=== PATIENT | female | born 1950 | race Caucasian/White ===

== ENCOUNTER → 2020-09-06 11:53 | Outpatient (BNVA) | payer MEDICARE, SELFPAY | PROVIDERS: PCP Internal Medicine; Visit Provider Surgery | DX: K59.00 Constipation, unspecified (principal); R10.32 Left lower quadrant pain | CPT/HCPCS: 99202 ==

== ENCOUNTER 2020-09-16 06:24 | Day surgery (SDC) | payer MEDICARE, SELFPAY ==
[2020-09-13 08:43] VITALS: BMI 32.3
--- NOTE | 2020-09-15 08:37 | P.CONAN_ITS ---
Documented by User: Katia Vigil 09/15/20 08:42 HPI - Anesthesia Eval Consult details Narrative: 70yo F for Colonoscopy [facility] Active Problems Active Problems: All Active Problems (Updated 09/07/20 @ 14:55 by Abdiel Perez MD) Constipation (Acute) Abdominal pain, left lower quadrant (Acute) Past Medical History Medical History Arm fracture Diabetes mellitus HLD (hyperlipidemia) Hypothyroid Surgical History Surgical History History of section Social History Social History Smoking Status: Former smoker Smoked in Last 30 Days: No Use of substances other than those prescribed or required for medical reasons: No Advance Directives: No Advance Directives Information Provided: Yes Recently lost weight without trying: Yes Meds Allergies Allergy/AdvReac Type Severity Reaction Status Date / Time No Known Allergies Allergy Verified 09/16/20 06:35 Home Medications Medication Instructions Recorded Confirmed Last Taken Type alendronate 70 mg tablet 70 mg PO QWEEK 09/06/20 Unknown History atenolol 50 mg tablet 50 mg PO DAILY 09/06/20 Unknown History atorvastatin 40 mg tablet 40 mg PO DAILY 09/06/20 Unknown History esomeprazole magnesium 20 mg 20 mg PO DAILY 09/06/20 Unknown History capsule,delayed release insulin detemir U-100 100 unit/mL 14 unit SUBCUT BEDTIME ml 09/06/20 Unknown History subcutaneous solution levothyroxine 112 mcg tablet 112 mcg PO DAILY 09/06/20 Unknown History pioglitazone 45 mg tablet 45 mg PO DAILY 09/06/20 Unknown History Exam Exam Date and Time: September 15, 2020 0837 Height,Weight and Vital Signs: Height 5 ft 6 in Weight 90.718 kg Assessment and Plan Assessment Anesthesia Assessment: Chart Reviewed Documented by User: Gonzalo Baires 09/16/20 07:14 PMFSH Past Medical History Medical History Arm fracture Diabetes mellitus HLD (hyperlipidemia) Hypothyroid Surgical History Surgical History History of section Social History Social History Smoking Status: Former smoker Smoked in Last 30 Days: No Use of substances other than those prescribed or required for medical reasons: No Advance Directives: No Advance Directives Information Provided: Yes Recently lost weight without trying: Yes Meds Allergies Allergy/AdvReac Type Severity Reaction Status Date / Time No Known Allergies Allergy Verified 09/16/20 06:35 Home Medications Medication Instructions Recorded Confirmed Last Taken Type alendronate 70 mg tablet 70 mg PO QWEEK 09/06/20 Unknown History atenolol 50 mg tablet 50 mg PO DAILY 09/06/20 Unknown History atorvastatin 40 mg tablet 40 mg PO DAILY 09/06/20 Unknown History esomeprazole magnesium 20 mg 20 mg PO DAILY 09/06/20 Unknown History capsule,delayed release insulin detemir U-100 100 unit/mL 14 unit SUBCUT BEDTIME ml 09/06/20 Unknown History subcutaneous solution levothyroxine 112 mcg tablet 112 mcg PO DAILY 09/06/20 Unknown History pioglitazone 45 mg tablet 45 mg PO DAILY 09/06/20 Unknown History Exam Airway Mallampati Class: II TM Dist: >3cm Neck ROM: Full Denture: Upper Partial: Lower Loose/Missing/Broken Teeth: Yes Heart: [id number] Lungs: cta b/l Assessment and Plan Assessment Anesthesia Assessment: Anesthesia Plan Discussed, PAT Visit and Chart Reviewed Final Anesthetic Review NPO: Yes ASA Class: II Final Preanesthetic Review: No Changes in Pt Med Stat, Meds/Allgs Chart Reviewed, Consent Obtained/Reviewed and Anes Risks/Benef Reviewed Patient Risk: Low Procedure Risk: Low Assessment/Block/Sedation in SS: Assess/Block/Sedation-SS Anesthetic Plan Anesthetic Plan: MAC: and Agree w/ Assess. and Plan Disposition: Standard PACU
[2020-09-16 06:31] VITALS: BMI 30.7
[2020-09-16 06:38] VITALS: BP 148/73; PULSE 89; RESP 16; TEMP 36.1; O2SAT 95
--- NOTE | 2020-09-16 06:51 | PC.NURSE ---
patient atytempting to use bathroom prior to a fleet
[2020-09-16] MEDS: Sodium Phosphate,Mono-Dibasic 133 ML ENEMA PR (06:54)
--- NOTE | 2020-09-16 06:58 | PC.NURSE ---
no output are attempting in the bathroom. agreed to having fleet enema. laying on left side lexis well.
--- NOTE | 2020-09-16 07:08 | PC.NURSE ---
ooutput clear and yellow.
[2020-09-16] MEDS: Lactated Ringers 1,000 ML 100 ML IVCONT (07:09)
[2020-09-16 07:14] LABS: Glucose, Whole Blood 141 mg/dL (60-115)
--- NOTE | 2020-09-16 07:26 | P.HPSUR_ITS ---
Pre-Procedural Eval Section B Chief Complaint: Family Hx of Colon Cancer, Change in Bowel Habit Allergies: Allergies Allergy/AdvReac Type Severity Reaction Status Date / Time No Known Allergies Allergy Verified 09/16/20 06:35 Plan 71F with a family hx of colon caner (sister) here for ffup colonoscopy last colomoscopy was 5 years ago - benign polyps removed, in [place] has constipation no blood per rectum abd soft reviewed procedure with pt, incl. risks, benefits and alternatives I have reviewed the history and physical and performed a pertinent physical examination on my patient. No changes have occurred unless specified.
--- NOTE | 2020-09-16 08:24 | P.OP_ITS ---
Operative Note Operative Note Date of Service: 09/16/20 Narrative: Preop diagnosis: FH of colon cancer, constipation Postop diagnosis: As above, incomplete colonoscopy due to severe angulation in the sigmoid Procedure: incomplete colonoscopy, on the 25 cm Surgeon: Shiv Corey MD The patient is a 70 year female who was seen by Dr. Perez because of constipation with recent onset. She was also due for her screening colonoscopy as she has a family history of colon cancer. She was therefore sent to [facility] for colonoscopy. She understood the technique of the procedure. She was ordered the risks, benefits alternatives. She stated that her last colonoscopy was 5 years ago in [place] and this had shown some benign polyps. She was brought to the operating room placed in left lateral decubitus position under monitored anesthesia care. A surgical time-out was done. A full digital rectal was done and there were no palpable anal lesions. The tip of the Olympus colonoscope was gently introduced through the anal orifice and advanced with insufflation slowly. We were able to advance up to about 20-25 cm but there was note of a severe angulation and advance the scope through this. Furthermore, I continued to insufflate and we were unable to clearly identify the lumen at this point because of this apparent angulation. I attempted multiple times by withdrawing and reinserting the scope but I encountered the same angulation in the same area. There was no mucosal abnormality that was seen. After multiple attempts for about 20 minutes, I deemed that it would be unsafe to persist with advancing the scope. I withdrew the scope and examined the distal sigmoid rectum and there were no lesions seen. The scope was then withdrawn completely The patient otherwise tolerated the procedure well. There were no immediate complications I will schedule the patient for CT colonography. This will be explained to her.
[2020-09-16 08:28] VITALS: BP 140/58; PULSE 77; RESP 16; TEMP 36.2; O2SAT 97
--- NOTE | 2020-09-16 08:29 | PM.OP ---
Brief Operative Note Date of Service: 09/16/20 Pre-op diagnosis: Family history of colon cancer Post-op diagnosis: same (Unable to advance the scope past 20-25 cm because of severe angulation) Procedure: Incomplete colonoscopy up to 20-25 cm only Surgeon: Shiv Corey MD Anesthesia: GLMA Estimated blood loss (mL): 0 Pathology: none sent Condition: stable Disposition: PACU
[2020-09-16 08:43] VITALS: BP 144/58; PULSE 71; RESP 16; TEMP 36.2; O2SAT 97
== END 2020-09-16 09:41 | disposition home or self-care (01) ==
PROVIDERS: PCP Internal Medicine; Visit Provider Surgery
PROC: 0DJD8ZZ Inspection of Lower Intestinal Tract, Via Natural or Artificial Opening Endoscopic (ICD-10-PCS; CPT 45378; principal; 2020-09-16 07:30)
DX: R19.4 Change in bowel habit (principal); K56.699 Other intestinal obstruction unspecified as to partial versus complete obstruction; Z80.0 Family history of malignant neoplasm of digestive organs; Z86.010 Personal history of colon polyps; K59.00 Constipation, unspecified; E11.9 Type 2 diabetes mellitus without complications; Z79.4 Long term (current) use of insulin; Z87.891 Personal history of nicotine dependence
CPT/HCPCS: 45330; 82947

== ENCOUNTER → 2020-09-29 08:49 | Outpatient (BNVA) | payer MEDICARE, SELFPAY | PROVIDERS: PCP Internal Medicine; Visit Provider Surgery | DX: K59.00 Constipation, unspecified (principal) | CPT/HCPCS: Q3014 ==

== ENCOUNTER 2023-04-01 06:54 | Day surgery (SDC) | payer MEDICARE, SELFPAY ==
[2023-03-27 16:36] VITALS: BMI 38.7
[2023-03-28 10:30] VITALS: BMI 37.1
--- NOTE | 2023-03-29 07:52 | MHC.SHP ---
Pre-Procedural Eval Section A Date of Service: 03/29/23 The patient is an INPATIENT: No Changes since office visit: No Cold of Flu in the past 2 weeks, No New Medical Problems, No Changes in Medication and No Patient answered all questions The History & Physical has been completed within 30 days and I have reviewed it.: Yes Section B Chief Complaint: Age-related nuclear cataract, right eye Allergies: Allergies Allergy/AdvReac Type Severity Reaction Status Date / Time No Known Allergies Allergy Verified 03/28/23 10:30 Plan Diagnosis/Plan: Unchanged I have reviewed the history and physical and performed a pertinent physical examination on my patient. No changes have occurred unless specified. Time Spent With Patient Time: Total time managing care of this patient today ____ minutes.
[2023-04-01] MEDS: Cyclopentolate 1 % Ophth Sol 2 ML DRPBTL 1 DROP EYE-RIGHT ×3 (07:36→07:45)
[2023-04-01] MEDS: Tetracaine HCl/PF 0.5% Oph Sol 4 ML DROPS 1 DROP EYE-RIGHT (07:36)
[2023-04-01] MEDS: Lactated Ringers 500 ML 50 ML IV (07:36)
[2023-04-01] MEDS: Tropicamide 1 % Ophth Sol 3 ML BTL 1 DROP EYE-RIGHT ×3 (07:37→07:46)
[2023-04-01] MEDS: Phenylephrine HCL 2.5% Oph SoL 2 ML BOTTLE 1 DROP EYE-RIGHT ×3 (07:37→07:46)
[2023-04-01] MEDS: Ketorolac Tromethamine 0.5% Op 5 ML DROPS 1 DROP EYE-RIGHT ×3 (07:37→07:46)
[2023-04-01 07:48] VITALS: BP 132/57; PULSE 68; RESP 18; TEMP 36.6; O2SAT 96
--- NOTE | 2023-04-01 07:55 | P.CONAN_ITS ---
HPI - Anesthesia Eval Consult details Narrative: 72 yo female patient for Right cataract ectraction, IOL insertion PMFSH Active Problems Active Problems: All Active Problems (Updated 04/01/23 @ 07:50 by Tri Lindsey MD) Screening for colon cancer (Acute) Constipation (Acute) Abdominal pain, left lower quadrant (Acute) Increased BMI Past Medical History Medical History Osteoporosis Cataract HLD (hyperlipidemia) Hypothyroid Arm fracture Diabetes mellitus Family History Family history of problems with anesthesia: No Surgical History Surgical History H/O colonoscopy History of section History of Problems with Anesthesia: No Social History Social History Household Members: Spouse Housing: House Are you a primary home health care case manager to a significant other at home: Yes ( with hip fx) Do you presently have visiting nurse or other home services: No Patient Tobacco Use Status: Former Tobacco user Quit Date: 2016 Tobacco use type: Cigarette Use of substances other than those prescribed or required for medical reasons: No Have you been hit, kicked, punched, or otherwise hurt by someone within the past year? If so, by whom?: No Are you DNR?: No Advance Directives: No Advance Directives Information Provided: Yes Advance Directives on File: No Recently lost weight without trying: No Nutrition Risks: No Nutritional Risk Meds Allergies Allergy/AdvReac Type Severity Reaction Status Date / Time No Known Allergies Allergy Verified 04/01/23 07:07 Active Medications: Current Medications Lactated Ringer's (Lr) 500 mls @ 50 mls/hr IV .Q10H CALDERON Stop: 04/01/23 16:59 Last Admin: 04/01/23 07:36 Dose: 50 mls/hr Lactated Ringer's (Lr) 500 mls @ 50 mls/hr IVCONT .Q10H CALDERON Povidone Iodine (Povidone Iodine 5 % Ophth Soln 30 Ml Bottle) 1 appl EYE-RIGHT PREOP PRN PRN Reason: Pre-Op Surgical Implant Prophy Home Medications Medication Instructions Recorded Confirmed Last Taken Type alendronate 70 mg tablet 70 mg PO QWEEK 09/06/20 03/28/23 Unknown History atenolol 50 mg tablet 50 mg PO DAILY 09/06/20 03/28/23 Unknown History atorvastatin 40 mg tablet 40 mg PO BEDTIME 09/06/20 03/28/23 Unknown History insulin detemir U-100 100 unit/mL 14 unit subcut DAILY 09/06/20 03/28/23 Unknown History subcutaneous solution (Levemir U-100 Insulin) levothyroxine 112 mcg tablet 112 mcg PO DAILY 09/06/20 03/28/23 Unknown History pioglitazone 45 mg tablet 45 mg PO DAILY 09/06/20 03/28/23 Unknown History Exam Exam Date and Time: April 01, 2023 0755 Height,Weight and Vital Signs: Height 5 ft 4.57 in Weight 99.79 kg Last Vital Signs Temp 97.9 F 04/01/23 07:48 Pulse 68 04/01/23 07:48 Resp 18 04/01/23 07:48 BP 132/57 L 04/01/23 07:48 Pulse Ox 96 04/01/23 07:48 O2 Del Method Room Air 04/01/23 07:48 Pertinent Lab Results Pertinent Lab Results: Lab Results 04/01/23 Range/Units 08:04 POC Glucose 106 (60-115) mg/dL Airway Mallampati Class: II TM Dist: >3cm Neck ROM: Full Denture: Upper Partial: Lower Loose/Missing/Broken Teeth: Yes (Denies broken or loose teeth) Heart: RRR Lungs: CTAB Assessment and Plan Assessment Anesthesia Assessment: Anesthesia Plan Discussed and Chart Reviewed Final Anesthetic Review Family History of Problems with Anesthesia: No History of Problems with Anesthesia: No NPO: Yes ASA Class: II Final Preanesthetic Review: No Changes in Pt Med Stat, Meds/Allgs Chart Reviewed, Consent Obtained/Reviewed and Anes Risks/Benef Reviewed Patient Risk: Intermediate Procedure Risk: Low Assessment/Block/Sedation in SS: Assess/Block/Sedation-SS Anesthetic Plan Anesthetic Plan: MAC: Disposition: Standard PACU
[2023-04-01 08:07] LABS: Glucose, Whole Blood 106 mg/dL (60-115)
--- NOTE | 2023-04-01 08:43 | HO.PNOPHT ---
Ophthalmology Procedure Procedure Date of Service: 04/01/23 Ophthalmology Viscoelastic: Healon Duet Dual Pack Pro Ophthalmology Lenses: TECNIS [id number] (20.5) Procedure Notes: PREOPERATIVE DIAGNOSIS: Decreased visual acuity right eye secondary to cataract POSTOPERATIVE DIAGNOSIS: Same PROCEDURE: Right cataract extraction with intraocular lens insertion SURGEON: Gurpreet Nelson M.D. ANESTHESIA: Topical/MAC ESTIMATED BLOOD LOSS: None COMPLICATIONS: None After obtaining informed consent, the patient was brought to the operating room suite and placed in the supine position. After adequate sedation per anesthesia, topical drops of Tetracaine were given to the right eye. The eye was then prepped and draped in the usual sterile fashion. The operating room microscope was then positioned over the operative eye and a lid speculum placed. A paracentesis was created. Viscoelastic was then instilled into the anterior chamber. A three plane incision was then created temporally, utilizing a 2.85 mm keratome. Capsulotomy forceps were then utilized to create a circular tear capsulotomy. Hydrodissection and hydrodelineation were carried out until adequate mobilization of the nucleus occurred. Phacoemulsification was then utilized to remove the dense central nucleus followed by removal of the cortical material utilizing the automated aspiration irrigation unit. Viscoelastic was instilled into the posterior capsular bag followed by placement of a posterior chamber intraocular lens without difficulty. The residual Viscoelastic was then removed utilizing the automated IA machine. The wound was checked and found to be watertight. The patient tolerated the procedure well and the lid speculum was removed. Intracameral injection of Vigamox 0.1 mL followed by a subtenon injection of Kenalog-40 0.2 mL were administered. The patient will be seen in the a.m.
[2023-04-01 09:07] VITALS: BP 173/88; PULSE 63; RESP 20; TEMP 36.5; O2SAT 97
== END 2023-04-01 09:18 | disposition home or self-care (01) ==
PROVIDERS: PCP Internal Medicine; Visit Provider Ophthalmology
PROC: (CPT 66985; principal; 2023-04-01 08:50)
DX: H25.11 Age-related nuclear cataract, right eye (principal); H52.4 Presbyopia; Z83.511 Family history of glaucoma; I10 Essential (primary) hypertension; E78.00 Pure hypercholesterolemia, unspecified; E11.9 Type 2 diabetes mellitus without complications; E03.9 Hypothyroidism, unspecified; Z79.899 Other long term (current) drug therapy; Z87.891 Personal history of nicotine dependence
CPT/HCPCS: 66984; 82947; J2250; J3010; J3301; V2632

== ENCOUNTER 2024-04-15 13:39 | Emergency (ER) | payer MEDICARE, SELFPAY ==
--- NOTE | ~2024-04-15 | CT_ITS ---
EXAMINATION: CT HEAD WITHOUT CONTRAST CT FACIAL BONES WITHOUT CONTRAST CT CERVICAL SPINE WITHOUT CONTRAST CLINICAL INFORMATION: Fall. Head trauma. Hit face on concrete. Neck pain. COMPARISON: None available. TECHNIQUE: Imaging was performed from the skull base to vertex without intravenous administration of contrast. In addition, helical noncontrast CT imaging was acquired through the cervical spine and facial bones and source images were reviewed along with axial reconstructions and sagittal and coronal MPRs. This CT examination was performed using dose optimization techniques as appropriate, variously including the following: *Automated exposure control. *Adjustment of mA and/or kV according to patient size (this includes techniques or standardized protocols for targeted exams where dose is matched to indication/reason for exam; i.e. extremities or head). *Use of iterative reconstruction technique. DLP: 1705 mGy-cm FINDINGS: Head: There is no evidence of acute intracranial hemorrhage or edematous territorial infarction. Camacho-white matter differentiation is preserved. A few foci of hypoattenuation in the periventricular and deep white matter are consistent with mild microangiopathy. The ventricles are normal in morphology and size. No evidence for obstructive hydrocephalus. No abnormal mass effect or midline shift. No extra-axial fluid collections. The small subgaleal hematoma along the anterior vertex, measuring up to 0.3 cm in depth. No associated acute osseous calvarial abnormalities. Maxillofacial Bones: No evidence of maxillofacial bone fractures. The zygomatic arches remain intact. No nasal bone fracture. The nasal septum remains midline. No evidence of mandibular or maxillary fracture. The mandibular condyles remain well-seated in their respective temporal articular grooves. Normal appearance of the intraconal and extraconal fat. No evidence of traumatic injury to the extraocular musculature or globes. The mastoid air cells and visualized paranasal sinuses are clear. No layering fluid collections. Cervical Spine: The atlantooccipital and atlantoaxial articulations remain well aligned. Right-sided lens extraction. Moderate degenerative arthropathy of the atlantodental articulation. Mild reversal the normal cervical lordosis. Minimal degenerative anterolisthesis of C3 on C4. Otherwise, there is anatomic alignment of the vertebral bodies and posterior elements. No evidence of acute fracture or subluxation. The vertebral body heights are maintained. Advanced degenerative disc disease from C5-T3. Moderate degenerative disc disease at all additional levels. Facet and uncovertebral joint arthropathy leads to osseous encroachment on the neural foramina from C2-C3. There is no prevertebral soft tissue swelling. Atrophy of the thyroid gland. The thyroid gland and remaining cervical soft tissues are within normal limits. The lung apices demonstrate no abnormalities. CT/CT cervical spine wo IV con IMPRESSION: 1. No evidence of acute intracranial hemorrhage or edematous territorial infarction. Mild underlying microangiopathy. 2. No evidence of acute fracture or traumatic subluxation of the cervical spine. Moderate to advanced multilevel degenerative spondyloarthropathy of the cervical spine. 3. No evidence of acute fracture of the maxillofacial bones. 4. Small anterior scalp hematoma. No associated osseous calvarial abnormalities. Electronically signed by: Rhys Bhatt DO 04/15/2024 04:24 PM [facility]
--- NOTE | ~2024-04-15 | XR_ITS ---
EXAMINATION: XR KNEE, RIGHT CLINICAL INFORMATION: Fall. COMPARISON: None. TECHNIQUE: Four views of the right knee. FINDINGS: There is no acute radiographic finding. No fracture or dislocation is seen. No suprapatellar effusion is noted. Question very mild degenerative joint space narrowing involving the medial and patellofemoral compartments. No lytic or sclerotic bony lesion is seen. The soft tissues appear unremarkable. XR/XR knee RT 3V IMPRESSION: No acute finding. Electronically signed by: Preston Mackey MD 04/15/2024 04:21 PM EST RP
--- NOTE | 2024-04-15 13:53 | ED_ITS ---
HPI - Fall General Chief Complaint: Fall Stated Complaint: fall facial and neck inj Time Seen by Provider: 04/15/24 14:34 Source: patient and family (patient's son) Mode of arrival: ambulatory Limitations: no limitations History of Present Illness ED Provider: Gail Lopez PA-C HPI Narrative: Patient is a 73 year old assigned female at with a history of osteoporosis, cataracts, HLD, hypothyroidism, and DM presenting to the emergency department today with upper lip pain, right knee pain, neck pain, and head pain after a fall. Patient states that she was going up her concrete steps when she slipped and fell forward, jamming her neck and scraping her face. Patient denies any loss of consciousness, dizziness, lightheadedness, abdominal pain, nausea, vomiting, fever, chills, blurry vision, double vision, loss of vision, chest pain, difficulty breathing, shortness of breath, back pain, night sweats, pain with urination, increased urinary frequency, increased urinary urgency, blood in her urine or stool, syncope or a near syncopal episode, bowel incontinence, bladder incontinence, or any other complaints at this time. Patient states that she believes she is up to date on her tetanus status. Place fall occurred: home Loss of consciousness: none Context: tripped/slipped Location of injury: head, face and other (right knee) Related Data Home Medications ?Medication ?Instructions ?Recorded ?Confirmed alendronate 70 mg tablet 70 mg PO QWEEK 09/06/20 03/28/23 atenolol 50 mg tablet 50 mg PO DAILY 09/06/20 03/28/23 atorvastatin 40 mg tablet 40 mg PO BEDTIME 09/06/20 03/28/23 insulin detemir U-100 100 unit/mL 14 unit subcut DAILY 09/06/20 03/28/23 subcutaneous solution (Levemir U-100 Insulin) levothyroxine 112 mcg tablet 112 mcg PO DAILY 09/06/20 03/28/23 pioglitazone 45 mg tablet 45 mg PO DAILY 09/06/20 03/28/23 Previous Rx's ?Medication ?Instructions ?Recorded baclofen 5 mg tablet 5 mg PO TID PRN muscle pain #10 04/15/24 tabs lidocaine 5 % topical patch 1 patch topical DAILY #15 ea 04/15/24 (Lidoderm) naproxen 500 mg tablet 500 mg PO Q12H PRN pain (scale 04/15/24 score 1-3) #20 tabs Allergies Allergy/AdvReac Type Severity Reaction Status Date / Time No Known Allergies Allergy Verified 04/15/24 14:02 Review of Systems 2 Constitutional: Constitutional: Reports no additional constitutional complaints, Denies chills, Denies fever(s), Reports headache(s) and Denies night sweats Eyes: Eyes: Reports no additional eye complaints, Denies blurry vision, Denies change in vision, Denies diplopia, Denies eye discharge, Denies loss of vision and Denies eye pain ENT: Denies dizziness, Reports facial pain, Reports headache(s) and Reports neck pain Cardiovascular: Cardiovascular: Reports no additional cardiovascular complaints, Denies chest pain, Denies lightheadedness, Denies Loss of Consciousness and Denies dyspnea Respiratory: Respiratory: Reports no additional respiratory complaints and Denies dyspnea Gastrointestinal: Gastrointestinal: Reports no additional gastrointestinal complaints, Denies abdominal pain, Denies melena, Denies hematochezia, Denies change in bowel habits and Denies change in stool character Genitourinary: Genitourinary: Denies hematuria, Denies urinary frequency, Denies dysuria, Denies urinary incontinence, Denies urinary hesitancy and Denies urinary urgency Musculoskeletal: Musculoskeletal: Reports no additional musculoskeletal complaints, Reports neck pain, Denies numbness and Denies tingling Comments: right knee pain Neurologic: Denies dizziness, Reports headache(s), Denies loss of vision, Denies numbness and Denies tingling Psychiatric: Psychiatric: Reports no additional psychiatric complaints Endocrine: Endocrine: Reports no additional endocrine complaints Hematologic/Lymphatic: Hematologic/Lymphatic: Reports no additional hematologic/lymphatic complaints Allergic/Immunologic: Allergic/Immunologic: Reports no additional allergic/immunologic complaints [facility] Past Medical History Attestation statement: The following information was validated with the patient. (patient's son validated all information) Source: old records reviewed, obtained from family (patient's son provided additional history and confirmed the history provided by the patient.) and nursing notes reviewed Medical History Osteoporosis Cataract HLD (hyperlipidemia) Hypothyroid Arm fracture Diabetes mellitus Surgical History H/O colonoscopy History of section Social History Social History Household Members: Spouse Housing: House Are you a primary director day care center to a significant other at home: Yes ( with hip fx) Do you presently have visiting nurse or other home services: No Patient Tobacco Use Status: Former Tobacco user Tobacco use type: Cigarette Smoked in Last 30 Days: No Use of substances other than those prescribed or required for medical reasons: No Advance Directives: Yes Advance Directives Information Provided: No Advance Directives on File: No Physical Exam 2 Vital Signs: Vital Signs: Last Vital Signs Pulse 62 04/15/24 14:07 Resp 18 04/15/24 14:07 BP 106/79 04/15/24 14:07 Pulse Ox 97 04/15/24 14:07 O2 Del Method Room Air 04/15/24 13:54 BMI result Body Mass Index 39.5 Const: General: cooperative, no acute distress, alert and awake Nutritional Appearance: well nourished Orientation/consciousness: patient oriented x3 Limitations: no limitations HEENT: Head: Yes normal to inspection Head images: 1. skin abrasion - no active bleeding, no gaping areas Ears: hearing grossly normal bilaterally and external ears normal General nose exam: Normal external nose present, no nasal discharge noted and no epistaxis Face and sinus: Yes normal facial exam, No abrasion and No laceration Mouth: Normal oral and palatal mucosa present, no drooling and no muffled voice Eyes: General: appearance normal, both eyes and all related structures P eriorbital: periorbital findings normal Eyelids: Yes eyelids normal C onjunctivae: conjunctivae normal Pupils: Equal, round and reactive pupils present EOM: EOMs intact bilaterally Neck: Other: patient is in a c-collar Neck: Yes normal visual inspection Chest: Chest palpation & inspection: normal inspection of the chest Resp: Effort & Inspection: normal respiratory effort and able to speak in complete sentences GI: Inspection: Yes normal to inspection Neuro: General: patient oriented x3 and moves all extremities Cranial nerves: Yes Equal, round and reactive pupils present Cognition (Neuro): n ormal cognition Extrem: General: Yes normal to inspection, Yes full ROM and Yes capillary refill normal Psych: Appearance: grossly normal Mental Status: mental status grossly normal Affect: normal affect Attitude: cooperative Thought process: N ormal thought process present Thought content: Normal thought content present Insight: Good insight present (Psych) Course Course Course Narrative: This is a Rapid Medical Exam performed in triage by Gladis Watkins PA-C. Full HPI, ROS and PE to be performed by primary ED provider. 73 yo F presenting to the ED c/o headache, neck pain & R knee pain s/p mechanical slip & fall on concrete steps while going up the stairs [employer] PE: +superficial abrasions to nose, +lip swelling, +midline cervical spinous ttp > C-collar placed. +neck stiffness Plan: Head/C-spine CT, XR Reevaluation(s) Reevaluation #1: 1827 -- I received patient in sign-out from Gail BERNAL at shift change. On my examination, patient in cervical collar, lying comofrtably. She does have a small abrasion to her right knee without overlying swelling, deformity or ecchymosis. No active bleeding. small frontal scalp hematoma, no skull fracture. EOMs intact w/o entrapment. PERRLA. no septal hematoma. small abrasion and swelling to upper lip. no laceration. dentition intact. Head CT without bleed or skull fracture. There is a small anterior scalp hematoma which is consistent with exam findings. No acute fracture or subluxation of the C-spine. There is advanced multilevel degenerative spondyloarthropathy of the C-spine. No acute fracture of the maxillofacial bones. I personally removed cervical collar. She is tender along cervical spine. No noted step-off deformity. Patient requesting to be placed in a collar for comfort > placed in [place] collar. I have ordered her valium, lidocaine patch, and toradol for pain control. given degree of tenderness, I have advised patient to follow up with our spine doctor (dr. zamudio). referral provided. naproxen, lido patches and baclofen sent to pharmacy for pain control. Patient has remained stable throughout ED visit today. Discussed worrisome signs and symptoms and when to return to the ED. All questions answered at this time. Patient is agreeable with disposition and stable for discharge. EXAMINATION: CT HEAD WITHOUT CONTRAST CT FACIAL BONES WITHOUT CONTRAST CT CERVICAL SPINE WITHOUT CONTRAST CLINICAL INFORMATION: Fall. Head trauma. Hit face on concrete. Neck pain. COMPARISON: None available. TECHNIQUE: Imaging was performed from the skull base to vertex without intravenous administration of contrast. In addition, helical noncontrast CT imaging was acquired through the cervical spine and facial bones and source images were reviewed along with axial reconstructions and sagittal and coronal MPRs. This CT examination was performed using dose optimization techniques as appropriate, variously including the following: *Automated exposure control. *Adjustment of mA and/or kV according to patient size (this includes techniques or standardized protocols for targeted exams where dose is matched to indication/reason for exam; i.e. extremities or head). *Use of iterative reconstruction technique. DLP: 1705 mGy-cm FINDINGS: Head: There is no evidence of acute intracranial hemorrhage or edematous territorial infarction. Camacho-white matter differentiation is preserved. A few foci of hypoattenuation in the periventricular and deep white matter are consistent with mild microangiopathy. The ventricles are normal in morphology and size. No evidence for obstructive hydrocephalus. No abnormal mass effect or midline shift. No extra-axial fluid collections. The small subgaleal hematoma along the anterior vertex, measuring up to 0.3 cm in depth. No associated acute osseous calvarial abnormalities. Maxillofacial Bones: No evidence of maxillofacial bone fractures. The zygomatic arches remain intact. No nasal bone fracture. The nasal septum remains midline. No evidence of mandibular or maxillary fracture. The mandibular condyles remain well-seated in their respective temporal articular grooves. Normal appearance of the intraconal and extraconal fat. No evidence of traumatic injury to the extraocular musculature or globes. The mastoid air cells and visualized paranasal sinuses are clear. No layering fluid collections. Cervical Spine: The atlantooccipital and atlantoaxial articulations remain well aligned. Right-sided lens extraction. Moderate degenerative arthropathy of the atlantodental articulation. Mild reversal the normal cervical lordosis. Minimal degenerative anterolisthesis of C3 on C4. Otherwise, there is anatomic alignment of the vertebral bodies and posterior elements. No evidence of acute fracture or subluxation. The vertebral body heights are maintained. Advanced degenerative disc disease from C5-T3. Moderate degenerative disc disease at all additional levels. Facet and uncovertebral joint arthropathy leads to osseous encroachment on the neural foramina from C2-C3. There is no prevertebral soft tissue swelling. Atrophy of the thyroid gland. The thyroid gland and remaining cervical soft tissues are within normal limits. The lung apices demonstrate no abnormalities. CT/CT head/brain wo IV con IMPRESSION: 1. No evidence of acute intracranial hemorrhage or edematous territorial infarction. Mild underlying microangiopathy. 2. No evidence of acute fracture or traumatic subluxation of the cervical spine. Moderate to advanced multilevel degenerative spondyloarthropathy of the cervical spine. 3. No evidence of acute fracture of the maxillofacial bones. 4. Small anterior scalp hematoma. No associated osseous calvarial abnormalities. Electronically signed by: Rhys Bhatt DO 04/15/2024 04:24 PM [facility] EXAMINATION: XR KNEE, RIGHT CLINICAL INFORMATION: Fall. COMPARISON: None. TECHNIQUE: Four views of the right knee. FINDINGS: There is no acute radiographic finding. No fracture or dislocation is seen. No suprapatellar effusion is noted. Question very mild degenerative joint space narrowing involving the medial and patellofemoral compartments. No lytic or sclerotic bony lesion is seen. The soft tissues appear unremarkable. XR/XR knee RT 3V IMPRESSION: No acute finding. -- Kaylie Guajardo PA-C Medical Decision Making Medical Decision Making MDM Narrative: Patient is a 73 year old assigned female at with a history of osteoporosis, cataracts, HLD, hypothyroidism, and DM presenting to the emergency department today with upper lip pain, right knee pain, neck pain, and head pain after a fall. Patient's physical exam was as noted in the physical exam portion of this note. Patient's right x-ray, head CT, c-spine CT, and facial bones CT are pending at this time. I explained my physical exam findings to the patient and the patient's son. I answered all questions asked by the patient and the patient's son. Patient signed out to the evening ARVIND pending imaging reads for final disposition determination. Differential Diagnosis Differential Diagnoses: The differential diagnosis associated with the presentation includes Intracranial hemorrhage Cervical spine injury Cervical spine fracture Nasal fracture Nasal contusion Fall Admission/Observation Consideration of admission/observation: Escalation of care including admission/observation considered Patient's disposition will be determined after imaging reads. Independent Historian Clinical information obtained from an independent historian. History obtained from or confirmed by: Other (patient's son provided additional history and confirmed the history provided by the patient.) Discharge Plan Discharge Clinical Impression: Fall, Abrasion of lip, Neck pain Patient Disposition: Home, Self-Care Instructions: Abrasion (ED), Neck Pain (ED) Additional Instructions: You were evaluated in the ED today following a fall. The CT scans of your head/ face/ neck do not demonstrate fracture or bleed. There are degenerative changes within the neck, consistent with arthritis. There is a hematoma to your frontal scalp - the body will reabsorb this. You may apply ice at home to help with the pain/ swelling. You have been placed in an aspen neck collar for comfort. use this sparingly for comfort and make sure you are moving your neck around. I advise you to follow up with our Spine doctor. You have been provided with a referral. call them to make an appointment. they will not call you. I have also send baclofen (muscle relaxer), naproxen, and lidocaine patches to your pharmacy for you to take for pain control. The xray of your right knee is normal. Apply bacitracin or neosporin to your abrasions. Follow up with PCP this week. Return with new or worsening symptoms. In the case of an emergency call 911. Prescriptions: New baclofen 5 mg tablet 5 mg PO TID PRN (Reason: muscle pain) Qty: 10 0RF lidocaine [Lidoderm] 5 % adhesive patch,medicated 1 patch topical DAILY Qty: 15 0RF Rx Instructions: leave on most painful area for up to 12 hrs naproxen 500 mg tablet 500 mg PO Q12H PRN (Reason: pain (scale score 1-3)) Qty: 20 0RF No Action levothyroxine 112 mcg tablet 112 mcg PO DAILY atenolol 50 mg tablet 50 mg PO DAILY atorvastatin 40 mg tablet 40 mg PO BEDTIME pioglitazone 45 mg tablet 45 mg PO DAILY alendronate 70 mg tablet 70 mg PO QWEEK Levemir U-100 Insulin 100 unit/mL solution 14 unit subcut DAILY Referrals: Karl Leon MD [Primary Care Provider] - Leo Zamudio MD, PhD [Physician] - Print Language: Chadian
[2024-04-15 13:54] VITALS: BP 106/79; PULSE 62; RESP 18; O2SAT 97; BMI 39.5
[2024-04-15 14:07] VITALS: BP 106/79; PULSE 62; RESP 18; O2SAT 97
--- NOTE | 2024-04-15 14:18 | PC.NURSE ---
Pt comes to ED today from home s/p fall Pt reports tripping up stairs into house with items in her hand and unable to brace herself. (+) head strike to face. Upper lip swelling, dried blood to lips. Pt c/o 10/10 pain to posterior neck. Reports SALINAS, nausea, dizziness, and blurred vision. C-collar placed in triage.
--- NOTE | 2024-04-15 14:21 | PC.NURSE ---
Pt brought for imaging at this time.
[2024-04-15] MEDS: diazePAM 5 MG TABLET PO (17:20)
[2024-04-15] MEDS: Ketorolac Tromethamine 30 MG/ML VIAL IM (17:23)
[2024-04-15] MEDS: Lidocaine 4 % Patch ADH..PATCH 1 PATCH TRANSDERMA (17:23)
[2024-04-15 17:33] VITALS: BP 149/70; PULSE 76; RESP 16; TEMP 36.4; O2SAT 100
== END 2024-04-15 17:34 | disposition home or self-care (01) ==
PROVIDERS: Emergency Provider Emergency Medicine Emergency Medical Services; PCP Internal Medicine
DX: M54.2 Cervicalgia (principal); S00.511A Abrasion of lip, initial encounter; W10.8XXA Fall (on) (from) other stairs and steps, initial encounter; R51.9 Headache, unspecified; M25.561 Pain in right knee; Y93.89 Activity, other specified; Y92.038 Other place in apartment as the place of occurrence of the external cause; Y99.9 Unspecified external cause status
CPT/HCPCS: 70450; 70486; 72125; 73562; 96372; 99284; J1885

== ENCOUNTER 2025-02-10 07:53 | Emergency (ER) | payer MEDICARE, SELFPAY ==
--- NOTE | ~2025-02-10 | XR_ITS ---
EXAMINATION: XR KNEE, LEFT CLINICAL INFORMATION: pain COMPARISON: None available. TECHNIQUE: Four views of the left knee. FINDINGS: No fracture, dislocation, or suspicious bone lesion. There is normal alignment of the knee. Mild to moderate medial compartment and mild patellofemoral compartment joint space narrowing with marginal osteophytic spurring. There is spurring of the tibial spines. There is preservation of the lateral joint compartment. There is superior and inferior patellar enthesopathy. There is no evidence of joint effusion. There is no discrete soft tissue abnormality. XR/XR knee LT 4V IMPRESSION: 1. No acute bony abnormalities. No evidence of joint effusion. 2. Osteoarthritis, mild to moderate in the medial compartment and mild in the patellofemoral compartment. Electronically signed by: Keshav Márquez MD 02/10/2025 09:36 AM EDT
--- NOTE | ~2025-02-10 | US_ITS ---
EXAMINATION: US TRIPLEX LOWER EXTREMITY, LEFT CLINICAL INFORMATION: Left lower extremity pain COMPARISON: None available. TECHNIQUE: Color-flow triplex imaging with spectral analysis and compression Doppler were performed on the left lower extremity. FINDINGS: Respiratory variation, normal compression and augmented flow are noted throughout the left lower extremity. The visualized common femoral vein, superficial femoral vein, profunda femoral vein, popliteal vein and midcalf peroneal and posterior tibial venous segments show no evidence of deep venous thrombosis. US/US venous duplex LE LT IMPRESSION: No evidence of deep venous thrombosis involving the left lower extremity. Electronically signed by: Panchito Harris MD 02/10/2025 10:37 AM EDT
[2025-02-10 07:59] VITALS: BP 158/84; PULSE 57; RESP 18; TEMP 37; O2SAT 95; BMI 40.3
--- NOTE | 2025-02-10 08:08 | ED_ITS ---
HPI - General Adult General Chief complaint: Extremity Injury, Lower Stated complaint: Leg pain, no weight bearing Time Seen by Provider: 02/10/25 08:06 Source: patient Mode of arrival: ambulatory Limitations: no limitations History of Present Illness ED Provider: Gail Lopez PA-C HPI narrative: This is a 74 year old female with a history of DM, sleep apnea, lumbar stenosis and chronic shortness of breath with exertion presents for evaluation of left leg pain. This pain started behind the left knee Saturday02/07/2025, the same day that she got a flu and COVID vaccine. The pain has increased with time now radiating to left thigh and left ankle. She has not experienced this before. She was feeling relief with rest but last night the pain began to be present at rest as well. She began to feel tingling in her left foot last night. She endorses that she is unable to bear weight on the left leg without support at this time. She ambulates independently at baseline. She has tried ice with no relief. She denies any recent injuries. She denies recent history of travel, surgery, illness, or new rashes. She endorses that her father had cancer but she has no personal history of cancer. She denies history of anticoagulation medication use. She has not been exercising lately but she endorses that this is her baseline. She denies any abdominal pain or changes stool or urination. She denies any changes in vision or hearing. She denies cough, chest pain, or orthopnea. Patient denies any other complaints at this time. Related Data Home Medications ?Medication ?Instructions ?Recorded ?Confirmed alendronate 70 mg tablet 70 mg PO QWEEK 09/06/2002/09 atenolol 50 mg tablet 50 mg PO DAILY 09/06/2002/09 atorvastatin 40 mg tablet 40 mg PO BEDTIME 09/06/20 insulin detemir U-100 100 unit/mL 14 unit subcut DAILY 09/06/20 03/28/23 subcutaneous solution (Levemir U-100 Insulin) levothyroxine 112 mcg tablet 112 mcg PO DAILY 09/06/20 03/28/23 pioglitazone 45 mg tablet 45 mg PO DAILY 09/06/2002/09 Previous Rx's ?Medication ?Instructions ?Recorded baclofen 5 mg tablet 5 mg PO TID PRN muscle pain #10 04/15/24 tabs lidocaine 5 % topical patch 1 patch topical DAILY #15 ea 04/15/24 (Lidoderm) naproxen 500 mg tablet 500 mg PO Q12H PRN pain (sca le 04/15/24 score 1-3) #20 tabs Allergies Allergy/AdvReac Type Severity Reaction Status Date / Time No Known Allergies Allergy Verified 02/10/25 08:00 Review of Systems 2 Constitutional: Constitutional: Reports as per HPI Eyes: Eyes: Reports as per HPI ENT: Reports as per HPI Cardiovascular: Cardiovascular: Reports as per HPI Respiratory: Respiratory: Reports as per HPI Gastrointestinal: Gastrointestinal: Reports as per HPI Genitourinary: Genitourinary: Reports as per HPI Musculoskeletal: Musculoskeletal: Reports as per HPI Integumentary/Breasts: Skin/Breast: Reports as per HPI Neurologic: Reports as per HPI Psychiatric: Psychiatric: Reports as per HPI Endocrine: Endocrine: Reports as per HPI Hematologic/Lymphatic: Hematologic/Lymphatic: Reports as per HPI Allergic/Immunologic: Allergic/Immunologic: Reports as per HPI PMF Past Medical History Attestation statement: The following information was validated with the patient. Source: old records reviewed and nursing notes reviewed Medical History Osteoporosis Cataract HLD (hyperlipidemia) Hypothyroid Arm fracture Diabetes mellitus Surgical History H/O colonoscopy History of section Social History Social History Household Members: Spouse Housing: House Are you a primary acute care physical therapist to a significant other at home: Yes ( with hip fx) Do you presently have visiting nurse or other home services: No Patient Tobacco Use Status: Former Tobacco user Tobacco use type: Cigarette Physical Exam ED Vital Signs: Vital Signs - 24 hr 02/10/25 07:59 02/10/25 11:09 Temperature 98.6 F 98.6 F Pulse Rate 57 56 Respiratory Rate 18 18 Blood Pressure 158/84 H 136/80 Pulse Oximetry 95 96 Oxygen Delivery Method Room Air Room Air BMI result Body Mass Index 40.3 Const General: cooperative, comfortable, no acute distress and alert Nutritional Appearance: well nourished Orientation/consciousness: oriented to person, oriented to place, oriented to time and patient oriented x3 HENMT Head: Yes normal to inspection, Yes normocephalic and Yes atraumatic Ears: external ears normal General nose exam: Normal external nose present Face and sinus: Yes normal facial exam Mouth: Normal oral and palatal mucosa present, no drooling and no muffled voice Eyes General: appearance normal, both eyes and all related structures Periorbital: periorbital findings normal Eyelids: Yes eyelids normal Conjunctivae: conjunctivae normal Pupils: Equal, round and reactive pupils present EOM: EOMs intact bilaterally Neck Neck: Yes normal visual inspection Resp Effort & Inspection: normal respiratory effort and able to speak in complete sentences Cardio Rate: regular rate Rhythm: regular rhythm Heart sounds: S1 normal heart sound present and S2 normal heart sound present GI Inspection: Yes normal to inspection Auscultation: normal bowel sounds Skin General skin exam: no rashes or lesions noted Lesions: no lesions Rashes: no rashes Trauma: no lacerations or abrasions Wounds: no wounds Neuro General: oriented to person, oriented to place, oriented to time and patient oriented x3 Cranial nerves: Yes Equal, round and reactive pupils present Cognition (Neuro): normal cognition Extrem Other: Left knee pain with ROM General: Yes normal to inspection, Yes full ROM and Yes capillary refill normal Psych Appearance: grossly normal Mental Status: mental status grossly normal Affect: normal affect Attitude: cooperative Thought process: Normal thought process present Thought content: Normal thought content present Insight: Good insight present (Psych) Medications Administered Discontinued Medications Generic Name Dose Route Start Last Admin Trade Name Freq PRN Reason Stop Dose Admin Ketorolac Tromethamine 15 mg 02/10/25 08:31 02/10/25 08:33 Ketorolac Tromethamine 15 Mg/Ml Vial IM 02/10/25 08:32 15 mg ONCE ONE Administration Medical Decision Making Medical Decision Making MDM Narrative: Patient is a 74 year old assigned female at with a history of DM, sleep apnea, lumbar stenosis and chronic shortness of breath with exertion presenting to the emergency department today with left knee pain. Patient's physical exam was as noted in the physical exam portion of this note. No erythema or warmth present to the left lower extremity. No concern for septic joint or cellulitis. Patient's blood work was unremarkable. Patient's left knee x-ray showed no acute process but did show evidence of arthritis. Patient's left lower leg US showed no evidence of DVT or bakers cyst. Patient's clinical presentation is most consistent with osteoarthritis of the left knee. I explained my physical exam findings as well as all test results to the patient. I answered all questions asked by the patient. I stressed the importance of the patient taking her medication as directed (either prescribed or as the over the counter packaging recommends). I stressed the importance of the patient following up with her primary care provider and the orthopedic team. I stressed the importance of the patient returning to the emergency department immediately if her symptoms were to worsen or if she were to develop any dizziness, shortness of breath, difficulty breathing, chest pain, blurry vision, loss of vision, nausea, vomiting, abdominal pain, fever, chills, back pain, or any other complaints. Patient verbalized agreement and understanding with this treatment plan and discharge. Differential Diagnosis Differential Diagnoses: The differential diagnosis associated with the presentation includes Left knee pain Left lower leg pain Left lower leg DVT Left ramsay's cyst Osteoarthritis Admission/Observation Consideration of admission/observation: Escalation of care including admission/observation considered Patient would have been admitted to the hospital had her work up had any findings where hospital admission was appropriate and her clinical presentation warranted hospital admission. Lab Data [facility] Lab Attestation statement: I reviewed the patient's lab results. My interpretation of these results are in the [facility] Rationale portion of this note. 02/10/25 10:14 02/10/25 10:14 Labs: Lab Results 02/10/25 Range/Units 10:14 WBC 4.4 L (4.8-10.8) X10*3/uL RBC 4.21 (4.20-5.50) X10*6/uL Hgb 13.2 (12.0-16.0) g/dl Hct 39.5 (37.0-47.0) % MCV 93.8 (80.0-98.0) fL MCH 31.4 (27.0-33.0) pg MCHC 33.4 (31.0-35.0) g/dl RDW 15.2 (11.0-16.0) % Plt Count 198 (160-400) X10*3/uL MPV 8.9 L (9.4-12.3) fL Immature Gran % (Auto) 0.5 H (0.0-0.4) % Neut % (Auto) 69.3 (45-73) % Lymph % (Auto) 17.9 L (20-40) % [place] % (Auto) 10.2 (2-11) % Eos % (Auto) 1.4 (0-4) % Baso % (Auto) 0.7 (0-2) % Lymph # (Auto) 0.8 L (1.2-4.9) X10*3/uL [place] # (Auto) 0.5 (0.1-1.2) X10*3/uL Eos # (Auto) 0.1 (0.0-0.4) X10*3/uL Baso # (Auto) 0.0 (0.0-0.2) X10*3/uL Abs Immat Gran (auto) 0.02 (0.00-0.03) X10*3/uL Absolute Neuts (auto) 3.1 (2.0-8.3) x10*3/uL Absolute Nucleated RBC 0.000 (0.0-0.012) X10*3/uL Nucleated RBC % (auto) 0.0 (0.0-0.2) /100WBC PT 11.2 (10.9-12.4) SEC INR 1.0 (0.9-1.1) Sodium 142 (135-145) mmol/L Potassium 4.6 (3.3-5.1) mmol/L Chloride 107 (96-108) mmol/L Carbon Dioxide 29 (22-29) mmol/L Anion Gap 11 L (12-20) BUN 11 (9-16) mg/dL Creatinine 0.73 (0.5-1.4) mg/dL Estim Creat Clear Calc 83.7 Estimated GFR > 60 Random Glucose 137 H (60-115) mg/dL Calcium 9.3 (8.4-10.2) mg/dL Magnesium 1.7 (1.6-2.6) mg/dL Total Bilirubin 1.2 H (0.0-1.0) mg/dL AST 22 (5-31) U/L ALT 16 (0-31) U/L Alkaline Phosphatase 94 (39-117) U/L Total Protein 6.4 L (6.5-8.0) g/dL Albumin 4.0 (3.5-5.0) g/dL Independent Interpretation I performed an independent interpretation of an: Plain X-Ray and Ultrasound Interpretation: My interpretation is in agreement with the radiologist's impression of these imaging studies. L Reason for Exam: left lower leg pain, concern for DVT EXAMINATION: US TRIPLEX LOWER EXTREMITY, LEFT CLINICAL INFORMATION: Left lower extremity pain COMPARISON: None available. TECHNIQUE: Color-flow triplex imaging with spectral analysis and compression Doppler were performed on the left lower extremity. FINDINGS: Respiratory variation, normal compression and augmented flow are noted throughout the left lower extremity. The visualized common femoral vein, superficial femoral vein, profunda femoral vein, popliteal vein and midcalf peroneal and posterior tibial venous segments show no evidence of deep venous thrombosis. US/US venous duplex LE LT IMPRESSION: No evidence of deep venous thrombosis involving the left lower extremity. Electronically signed by: Panchito Harris MD 02/10/2025 10:37 AM EDT RP Dictated By: Panchito Harris MD Signed By: Electronically signed by Panchito Harris MD 02/10/25 1037 Reason for Exam: pain EXAMINATION: XR KNEE, LEFT CLINICAL INFORMATION: pain COMPARISON: None available. TECHNIQUE: Four views of the left knee. FINDINGS: No fracture, dislocation, or suspicious bone lesion. There is normal alignment of the knee. Mild to moderate medial compartment and mild patellofemoral compartment joint space narrowing with marginal osteophytic spurring. There is spurring of the tibial spines. There is preservation of the lateral joint compartment. There is superior and inferior patellar enthesopathy. There is no evidence of joint effusion. There is no discrete soft tissue abnormality. XR/XR knee LT 4V IMPRESSION: 1. No acute bony abnormalities. No evidence of joint effusion. 2. Osteoarthritis, mild to moderate in the medial compartment and mild in the patellofemoral compartment. Electronically signed by: Keshav Márquez MD 02/10/2025 09:36 AM EDT RP Dictated By: Keshav Márquez MD Signed By: Electronically signed by Keshav Márquez MD 02/10/25 0936 Radiology Impression Discussion of test interpretation with radiology: I have reviewed the radiologist's reading. Discharge Plan Discharge Clinical Impression: Osteoarthritis Patient Disposition: Home, Self-Care Instructions: Osteoarthritis (DC) Additional Instructions: Your x-ray showed evidence of osteoarthritis. Your labs were unremarkable and your ultrasound showed no evidence of DVT. Take over the counter Tylenol + Ibuprofen and follow up with the orthopedic team. You've asked your left knee be wrapped with an FRANCA wrap. You may remove this at any time. It should NEVER be so tight that you have a change in sensation or movement / ability to move to your left lower extremity. IF you are prescribed home medications and/or you are taking over the counter medications at home - it is very important you continue to do so as prescribed / directed unless told otherwise. Follow up with your primary care provider. Return to the emergency department immediately if your symptoms worsen or if you develop any numbness, tingling, dizziness, shortness of breath, difficulty breathing, chest pain, blurry vision, loss of vision, nausea, vomiting, abdominal pain, fever, chills, back pain, or any other complaints. Please see the information below about our Patient Portal. If you are not yet enrolled in the [facility] Patient Portal, you will receive an enrollment email invitation following your visit to any [facility] setting. You may also self-enroll in the Patient Portal by visiting our website: [email or web address] The following information is required to access the Patient Portal: - Your [facility] Medical Record Number - Your personal home email address (must match what is in your electronic medical record, Registration staff can assist with this) - Name - Date of Capabilities of the Patient Portal: - Message some providers - View upcoming appointments - Access your health summary, medical history, and visit history - View current conditions and allergies - View procedure and lab results - View your medications, including guidelines, side effects, and precautions - Complete pre-appointment questionnaires requested by your provider - Ready summary reports of your office visits and procedures To access the Patient Portal Mobile Jack, follow these directions: - Search [employer] in the Jack Store or Google Play Store - Download the Jack - Search for [facility] - Enter your login/password Prescriptions: No Action baclofen 5 mg tablet 5 mg PO TID PRN (Reason: muscle pain) Qty: 10 0RF lidocaine [Lidoderm] 5 % adhesive patch,medicated 1 patch topical DAILY Qty: 15 0RF Rx Instructions: leave on most painful area for up to 12 hrs naproxen 500 mg tablet 500 mg PO Q12H PRN (Reason: pain (scale score 1-3)) Qty: 20 0RF levothyroxine 112 mcg tablet 112 mcg PO DAILY atenolol 50 mg tablet 50 mg PO DAILY atorvastatin 40 mg tablet 40 mg PO BEDTIME pioglitazone 45 mg tablet 45 mg PO DAILY alendronate 70 mg tablet 70 mg PO QWEEK Levemir U-100 Insulin 100 unit/mL solution 14 unit subcut DAILY Referrals: [facility] Surgeons [Provider Group] Referral Note: Call to establish and follow up with the orthopedic team for your left knee osteoarthritis. Karl Leon MD [Primary Care Provider, Medical] Interventions: ED Discharge Assessment Last Done: 02/10/25 11:09 Discharge Date/Time: 02/10/25 11:20 Print Language: Nigerien
[2025-02-10 10:19] LABS: MANUAL DIFF FLAG NO
[2025-02-10 10:23] LABS: Hematocrit 39.5 % (37.0-47.0); Hemoglobin 13.2 g/dl (12.0-16.0); Imm Gran Abs Auto 0.02 X10*3/uL (0.00-0.03); Imm Gran Pct Auto 0.5 % (0.0-0.4); Lymphocytes Absolute Auto 0.8 X10*3/uL (1.2-4.9); Mean Corpuscular HGB Conc 33.4 g/dl (31.0-35.0); Mean Corpuscular Hemoglobin 31.4 pg (27.0-33.0); Mean Corpuscular Volume 93.8 fL (80.0-98.0); NRBC Abs Auto 0.000 X10*3/uL (0.0-0.012); NRBC Pct Auto 0.0 /100WBC (0.0-0.2); Platelet Count 198 X10*3/uL (160-400); Red Blood Count 4.21 X10*6/uL (4.20-5.50); White Blood Count 4.4 X10*3/uL (4.8-10.8)
[2025-02-10 10:27] LABS: INTERNATIONAL NORM RATIO 1.0 (0.9-1.1); Prothrombin Time 11.2 SEC (10.9-12.4)
[2025-02-10 10:38] LABS: Alanine Aminotransferase 16 U/L (0-31); Albumin Level 4.0 g/dL (3.5-5.0); Alkaline Phosphatase 94 U/L (39-117); Anion Gap 11 (12-20); Aspartate Amino Transferase 22 U/L (5-31); Blood Urea Nitrogen 11 mg/dL (9-16); Calcium 9.3 mg/dL (8.4-10.2); Carbon Dioxide 29 mmol/L (22-29); Chloride 107 mmol/L (96-108); Creatinine Clr Calc Pharmacy 83.7; Estimated Glomerular Filt Rate > 60; Magnesium 1.7 mg/dL (1.6-2.6); Potassium 4.6 mmol/L (3.3-5.1); Sodium 142 mmol/L (135-145); Total Protein 6.4 g/dL (6.5-8.0)
[2025-02-10 11:09] VITALS: BP 136/80; PULSE 56; RESP 18; TEMP 37; O2SAT 96
== END 2025-02-10 11:20 | disposition home or self-care (01) ==
PROVIDERS: Physician Assistant Medical; Emergency Provider Emergency Medicine; PCP Internal Medicine
DX: M17.12 Unilateral primary osteoarthritis, left knee (principal); M48.061 Spinal stenosis, lumbar region without neurogenic claudication; M81.0 Age-related osteoporosis without current pathological fracture; G47.30 Sleep apnea, unspecified; Z87.891 Personal history of nicotine dependence; Z79.899 Other long term (current) drug therapy
CPT/HCPCS: 36415; 73564; 80053; 83735; 85025; 85610; 93971; 96372; 99284; J1885

== ENCOUNTER → 2025-02-10 08:30 | Outpatient (BNV) | payer MEDICARE, SELFPAY | PROVIDERS: PCP Internal Medicine; Visit Provider Radiology Diagnostic Radiology | DX: M79.605 Pain in left leg (principal); M17.12 Unilateral primary osteoarthritis, left knee | CPT/HCPCS: 73564; 93971 ==